=== PATIENT | female | born 1955 | race Caucasian/White ===

== ENCOUNTER 2016-06-29 11:07 | Emergency (ER) | payer OTHER ==
[2016-06-29] MEDS ORDERED: SODIUM CHLORIDE 0.9% 1000ML 1,000 ML IVS PRN (11:13)
[2016-06-29] MEDS ORDERED: SODIUM CHLORIDE 0.9% (FLUSH) 10 ML SYG IV PRN (11:13)
[2016-06-29] MEDS ORDERED: HYDROmorphone HCL INJ 2 MG/ML VIAL IV ONE ×2 (11:15→12:36)
[2016-06-29] MEDS ORDERED: ONDANSETRON INJ 4 MG/2 ML VIAL IV ONE (11:16)
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
[2016-06-29 12:02] VITALS: TEMP 98.9; O2SAT 97
--- NOTE | 2016-06-29 12:12 | CT ---
EXAM DESCRIPTION: Head CLINICAL HISTORY: TRAUMA COMPARISON: None TECHNIQUE: Noncontrast transaxial CT images of the head are obtained from base to vertex. This exam was performed according to our departmental dose-optimization program, which includes automated exposure control, adjustment of the mA and/or kV according to patient size and/or use of iterative reconstruction technique. FINDINGS: The midline structures are not displaced. The sulci are age appropriate. The lateral, third, and fourth ventricles are normal in size, shape, and anatomic positioning. There is focal increased attenuation along the right common Anterior falx measuring up to 6 mm in thickness. Mildly increased attenuation possibly over a gyrus in the vertex right parietal region is seen. Normal jama-white differentiation is seen. The visualized bone windows show no depressed skull fracture or significant abnormality. The visualized paranasal sinuses and mastoid air cells are clear. IMPRESSION: 1. Small right parafalcine acute subdural hemorrhage is seen measuring 6 mm maximum thickness. 2. Question small focus of hemorrhage over the high right vertex parietal region. Findings on this exam were called to Dr. Olea at 1220 hours on June 29, 2016. 1. Electronically signed by: Aldo Mayes MD 06/29/2016 12:12 PM CDT
--- NOTE | 2016-06-29 12:29 | CT ---
EXAM DESCRIPTION: Cervical Spine CLINICAL HISTORY: TRAUMA COMPARISON: None available. TECHNIQUE: Axial noncontast CT of the cervical spine with coronal and sagittal reformats. This exam was performed according to our departmental dose-optimization program, which includes automated exposure control, adjustment of the mA and/or kV according to patient size and/or use of iterative reconstruction technique. FINDINGS: There is a comminuted displaced fracture involving the C2 vertebral body extending vertically the proximal aspect bilateral pars interarticularis. Mild posterior angulation of the odontoid is seen. The fracture extends to the disc space. There is 2 mm anterior displacement of the base of C2 relative to C3 vertebral body. Fracture extends through the foramen transversalis bilaterally. There also fractures involving the anterior arch of C2 on sidewalk mild displacement of the left-sided fracture. No fractures are identified. Visualized skull base is unremarkable. Lung apices are unremarkable. The neck tissues are otherwise unremarkable. C1-2 and craniocervical junction Fractures of C1 and C2 as described above. Seconds maintained measured approximately 9 mm in AP. C2-3 Fractures C2 as described above. There may be subtle anterior wedging of the superior plate of L3. No significant spinal canal stenosis is appreciated on CT imaging. C3-4 Mild left greater than right facet hypertrophic and degenerative changes are seen contributing to mild bilateral foraminal encroachment. C4-5 There is mild diffuse disc space narrowing with moderate right and mild left facet hypertrophic and degenerative changes. Moderate right foraminal encroachment is seen. C5-6 Mild diffuse disc space narrowing is seen. There is mild right and left facet hypertrophic and degenerative change contributing to mild right foraminal encroachment. C6-7 There is moderate diffuse disc space narrowing. No significant spinal canal stenosis. There is mild left foraminal encroachment secondary to uncovertebral joint spurring. C7-T1 No significant findings. IMPRESSION: There is a comminuted hangman's type fracture involving C2 with comminuted fracture of the C2 vertebral body and vertical fracture through the bilateral pars interarticularis. Slight anterior displacement of C2 on C3 is seen with posterior angulation of the odontoid. There are also minimally displaced fractures involving the anterior arch of C1 more prominent on the left. No significant spinal canal stenosis is appreciated on CT imaging. Multilevel spondylitic changes and facet arthropathy of the cervical spine are seen below the level of C3 as described level by level above. Electronically signed by: Aldo Mayes MD 06/29/2016 12:29 PM CDT
--- NOTE | 2016-06-29 12:44 | CT ---
EXAM DESCRIPTION: Chest w/Contrast (accession [id number]), Abdomen/Pelvis w/Contrast (accession [id number]) CLINICAL HISTORY: TRAUMA chest pain. Abdominal pain COMPARISON: None. TECHNIQUE: Postcontrast CT images of the chest, abdomen, and pelvis are obtained. This exam was performed according to our departmental dose-optimization program, which includes automated exposure control, adjustment of the mA and/or kV according to patient size and/or use of iterative reconstruction technique . FINDINGS: CT chest: The heart shows moderate coronary artery calcifications. Mild calcified plaque of the thoracic aorta is seen without aneurysmal dilatation or dissection. No pathologically enlarged mediastinal, hilar, or axillary lymphadenopathy is seen. There is trace left pleural effusion. No pericardial effusion. Tiny amount of pleural air seen anteriorly. Lungs are normally aerated. There is an ill-defined groundglass area of increased density adjacent to the pleura in the left lung apex measuring 12 12 mm. Noncalcified pulmonary nodule in the right lung base measures 8 mm. Somewhat groundglass area of reduced is seen adjacent to 5 mm noncalcified pulmonary nodule in the right lower lobe is seen. There is a mildly displaced fracture of the lateral left third rib with nondisplaced fractures of the anterior left second rib and posterior left first rib Intramedullary devang fixation of the left humerus is seen. There is moderate subcutaneous soft tissue fat stranding and edema around the visualized portion of the left shoulder. Scanogram images show fracture of the left distal clavicle with elevation of the clavicle suggesting AC joint separation. Moderate spondylitic changes of the thoracic spine are seen. Small 1 cm right breast soft tissue nodules seen. Correlate with mammographic findings. CT abdomen pelvis: Streak artifact from patient's arms degrades detailed evaluation. The liver, spleen, pancreas, adrenal glands, and gallbladder are unremarkable. Moderate atherosclerotic disease is seen. Kidneys show normal cortical enhancement. No ureteral obstruction is seen. Urinary bladder is unremarkable. There is surgical absence of uterus. Appendix is unremarkable. No small bowel obstruction or bowel wall thickening is seen. Mildly increased amount of air and stool seen throughout the colon. No significant diverticular disease. No pathologic lymphadenopathy. Mild spondylitic changes and facet arthropathy of the spine are seen. Osseous structures show no aggressive bony lesions. Mild skin thickening and underlying subcutaneous fat stranding in the right lower quadrant of the abdomen could represent injection site. IMPRESSION: Displaced fracture of the lateral left third rib with minimally to nondisplaced fractures of the left first and third ribs. Trace, tiny amount of pleural air in the left chest is seen. No lung collapse is identified at this time. Fracture left distal clavicle with AC joint separation is seen on scanogram. Trace left pleural effusion is seen. Several nodular densities in the right lower lobe are seen. Recommend follow-up imaging in 1 year to determine long-term stability and exclude early neoplastic process. Probable small pulmonary contusion in the left upper lobe. Moderate soft tissue swelling or edema around the left shoulder. No acute findings on CT of the abdomen and pelvis. Findings on this exam were called to Dr. Olea at 1243 hours on June 29, 2016. Findings on the CT of the cervical spine were also discussed with Dr. Olea at this time.. Electronically signed by: Aldo Mayes MD 06/29/2016 12:44 PM CDT
[2016-06-29 15:05] VITALS: BP 98/62
== END 2016-06-29 13:05 | disposition short-term general hospital (02) ==
LOC: ER 11:07
DX: S06.5X0A Traumatic subdural hemorrhage without loss of consciousness, initial encounter (principal); S22.42XA Multiple fractures of ribs, left side, initial encounter for closed fracture; S42.002A Fracture of unspecified part of left clavicle, initial encounter for closed fracture; J90 Pleural effusion, not elsewhere classified; S27.329A Contusion of lung, unspecified, initial encounter; S12.000A Unspecified displaced fracture of first cervical vertebra, initial encounter for closed fracture; S12.100A Unspecified displaced fracture of second cervical vertebra, initial encounter for closed fracture; V80.010A Animal-rider injured by fall from or being thrown from horse in noncollision accident, initial encounter; Y93.52 Activity, horseback riding; Y92.9 Unspecified place or not applicable